=== PATIENT | female | born 1960 | race Caucasian/White ===

== ENCOUNTER 2022-11-02 07:18 | Outpatient (CLI) | payer BC, SELFPAY ==
--- NOTE | ~2022-11-02 | MM_ITS ---
EXAMINATION: MM screening [facility] w lisa HISTORY: Screening mammogram TECHNIQUE: Craniocaudal and mediolateral oblique 3-D tomosynthesis images were obtained and synthetic 2-D images were generated. CAD analysis was submitted and interpreted. COMPARISON: 10/08/2020, 09/29/2019 BREAST PARENCHYMAL COMPOSITION: There are scattered areas of fibroglandular density. FINDINGS: No suspicious mass, calcification, or architectural distortion are identified in either johanne ast to suggest malignancy. There has been no suspicious interval change. IMPRESSION: 1. No mammographic evidence of malignancy. 2. Recommend routine screening mammography in one year. BI-RADS Category 1: Negative Reviewed, dictated and finalized at location A.
== END 2022-11-02 07:19 | disposition home or self-care (01) ==
LOC: CHSIMG 07:26
PROVIDERS: PCP Nurse Practitioner Family
DX: Z12.31 Encounter for screening mammogram for malignant neoplasm of breast (principal)
CPT/HCPCS: 77063; 77067

== ENCOUNTER 2023-08-31 11:30 | Outpatient (CLI) | payer BC, SELFPAY ==
--- NOTE | ~2023-08-31 | US_ITS ---
US thyroid INDICATION: Neck fullness TECHNIQUE: Real-time sonographic images of the thyroid gland were obtained. COMPARISON: No prior studies for comparison. FINDINGS: The right thyroid lobe measures 3.8 x 1.1 x 1.2 cm. The left thyroid lobe measures 4.2 x 1 .2 x 1.3 cm. There is normal echotexture and echogenicity throughout the thyroid gland. In the right lobe there are multiple small nodules measuring 7 mm or less, likely benign. Largest is oval hypoecho ic, wider than tall, solid, smoothly marginated without echogenic foci, TR 4. In the left lobe there is an oval hypoechoic 1.1 cm mass adjacent to the isthmus which is solid, hypoechoic, smoothly margin ated with punctate echogenic foci, TR 5. Normal vascular flow is present. IMPRESSION: 1. Suspicious left thyroid mass, TR 5, measuring 11 mm maximum dimension. Recommend ultrasound-guide d fine-needle aspiration biopsy. Reviewed, dictated and finalized at location B. IMPRESSION: 1. Suspicious left thyroid mass, TR 5, measuring 11 mm maximum dimension. Van mmend ultrasound-guided fine-needle aspiration biopsy.
== END 2023-08-31 11:31 ==
PROVIDERS: PCP Family Medicine; Visit Provider Family Medicine
DX: R22.1 Localized swelling, mass and lump, neck (principal)
CPT/HCPCS: 76536

== ENCOUNTER 2023-10-08 11:58 | Outpatient (CLI) | payer BC, SELFPAY ==
--- NOTE | ~2023-10-08 | US_ITS ---
EXAMINATION: US FNA w image guidance DATE: 10/08/2023 13:58 INDICATION: Thyroid mass TECHNIQUE: A time-out was performed to verify the patient's name, date of , and procedure to be performed . The procedure and its benefits and risks were discussed with the patient. Risks specifically discus sed included bleeding and infection. The patient understood the risks and agreed to proceed. The neck was prepped and draped in the usual sterile manner. 6 mL 1% lidocaine was used for local anesthesia . 6 passes were made with a 25G needle into the lesion. Appropriate needle location was documented with continuous sonographic guidance. A sterile bandage was applied. There were no immediate compli cations. FINDINGS: Grayscale ultrasound images demonstrate biopsy needles advanced into the 10 x 7 x 7 mm TI RADS 5 left thyroid lesion of concern. On real-time imaging of the nodule appear primarily anechoic cystic with small peripheral hypoechoic solid component. The punctate internal foci . To demonstrate comet tailin g consistent with inspissated colloid and would be classified nodule as a TI-RADS 2 nodule. IMPRESSION: 1. Successful ultrasound-guided fine needle aspiration of the previously described 1.1 cm TI RADS 5 left thyroid nodule. The current study the nodule measured 10 mm in maximal diameter and with clearer imaging, the features would be reassessed as consistent with a TI RADS 2 nodule. Correlate with path ology from the biopsy. Reviewed, dictated and finalized at location A. IMPRESSION: 1. Successful ultrasound-guided fine needle aspiration of the previously descr ibed 1.1 cm TI RADS 5 left thyroid nodule. The current study the nodule measure d 10 mm in maximal diameter and with clearer imaging, the features would be joseph ssessed as consistent with a TI RADS 2 nodule. Correlate with pathology from e biopsy.
== END 2023-10-08 11:59 | disposition home or self-care (01) ==
PROVIDERS: PCP Family Medicine; Visit Provider Registered Nurse
DX: E07.9 Disorder of thyroid, unspecified (principal)
CPT/HCPCS: 10005; 88172; 88173; 88305

== ENCOUNTER 2023-11-09 13:51 | Outpatient (CLI) | payer BC, SELFPAY ==
--- NOTE | ~2023-11-09 | MM_ITS ---
EXAMINATION: MM screening [facility] BI w lisa HISTORY: Screening TECHNIQUE: Craniocaudal and mediolateral oblique 3-D tomosynthesis images were obtained and synthetic 2-D images were generated. CAD analysis was submitted and interpreted. COMPARISON: Comparison to multiple prior studies sequentially, with oldest reviewed study dated 05/2018. BREAST PARENCHYMAL COMPOSITION: Not dense: There are scattered areas of fibroglandular density. FINDINGS: There are developing asymmetries in the upper outer quadrant of both breasts. There are no suspicious calcifications. IMPRESSION: 1. Developing bilateral breast asymmetries. 2. Additional mammographic views and possible breast ultrasound are recommended. BI-RADS Category 0: Incomplete: Needs additional imaging evaluation. Reviewed, dictated and finalized at location B. IMPRESSION: 1. Developing bilateral breast asymmetries. 2. Additional mammographic views and possible breast ultrasound are recommended . BI-RADS Category 0: Incomplete: Needs additional imaging evaluation.
== END 2023-11-09 13:52 | disposition home or self-care (01) ==
LOC: CHSIMG 13:51
PROVIDERS: PCP Family Medicine; Visit Provider Family Medicine
DX: Z12.31 Encounter for screening mammogram for malignant neoplasm of breast (principal); R92.8 Other abnormal and inconclusive findings on diagnostic imaging of breast
CPT/HCPCS: 77063; 77067

== ENCOUNTER 2023-12-13 09:12 | Outpatient (CLI) | payer BC, SELFPAY ==
--- NOTE | ~2023-12-13 | MM_ITS ---
EXAMINATION: MM diagnostic [facility] BI w lisa HISTORY: Bilateral breast asymmetries TECHNIQUE: Additional 3-D tomosynthesis images of the bilateral breasts were performed and synthetic 2-D images were generated. CAD analysis was submitted and interpreted. COMPARISON: 11/09/2023, 11/02/2022, 10/08/2020 BREAST PARENCHYMAL COMPOSITION:Not Dense. There are scattered areas of fibroglandular density. FINDINGS: Spot compression views demonstrate no persistent mass lesion or suspicious distortion. No s uspicious microcalcifications seen. IMPRESSION: No mammographic evidence for malignancy. BI-RADS Category 1: Negative Reviewed, dictated and finalized at location M.
== END 2023-12-13 09:13 | disposition home or self-care (01) ==
LOC: MICIMG 09:13
PROVIDERS: PCP Family Medicine; Visit Provider Family Medicine
DX: R92.8 Other abnormal and inconclusive findings on diagnostic imaging of breast (principal)
CPT/HCPCS: 77062; 77066; G0279

== ENCOUNTER 2024-03-05 09:31 | Outpatient (CLI) | payer BC, SELFPAY ==
--- NOTE | ~2024-03-05 | US_ITS ---
EXAMINATION: US soft tissue LE RT DATE: 03/05/2024 09:50 INDICATION: Palpable nodule at the posterior right thigh TECHNIQUE: Multiple grayscale and Doppler ultrasound images of the region of concern at the posterior right thigh were obtained. COMPARISON: None FINDINGS/IMPRESSION: There is a subtle 1.6 x 1.3 x 0.5 cm ovoid lesion in the superficial subcutaneous fat which is minima lly hyperechoic and with similar echotexture to the surrounding fat. Appearance would be most consist ent with and would be statistically most likely to represent a lipoma. Reviewed, dictated and finalized at location A. [employer]
== END 2024-03-05 09:32 | disposition home or self-care (01) ==
LOC: MICIMG 09:32
PROVIDERS: PCP Family Medicine; Visit Provider Family Medicine
DX: D17.9 Benign lipomatous neoplasm, unspecified (principal)
CPT/HCPCS: 76882